=== PATIENT | male | born 1990 | race Caucasian/White ===

== ENCOUNTER 2021-02-05 12:21 | Outpatient (RCR) | payer BC, SELFPAY ==
[2019-10-31 10:06] VITALS: BMI 22.3
== END 2021-04-13 23:59 ==
LOC: IMMUN 12:21
PROVIDERS: Visit Provider Family Medicine
DX: Z23 Encounter for immunization (principal)
CPT/HCPCS: 0001A; 0002A; 91300

== ENCOUNTER 2023-08-10 03:11 | Emergency (ER) | payer BC, SELFPAY ==
[2023-08-10 03:13] VITALS: BP 115/69; PULSE 80; RESP 16; TEMP 38.3; O2SAT 96; BMI 23.6
--- NOTE | 2023-08-10 03:27 | EKG12_ITS ---
Test Reason : DYSRHYTHMIA Blood Pressure : / mmHG Vent. Rate : 084 BPM Atrial Rate : 084 BPM P-R Int : 152 ms QRS Dur : 132 ms QT Int : 388 ms P-R-T Axes : 068 086 024 degrees QTc Int : 458 ms Normal sinus rhythm Right bundle branch block Abnormal ECG Confirmed by SUZAN STEVENS, ARTURO ([id number]), development editor RUSTY MCCOY ([id number]) on 08/11/2023 1:07:17 PM Referred By: Confirmed By:ARTURO MARES MD
[2023-08-10] MEDS: 0.9% Normal Saline (1000mL) 1,000 ML 1000 ML IV (03:41)
[2023-08-10 03:57] LABS: Anion Gap 7 (5-15); BUN 9 mg/dL (7-18); BUN/Creat Ratio 8.6 RATIO (10-20); Calcium,Total 8.3 mg/dL (8.5-10.1); Chloride 104 mmol/L (98-107); Creatinine, Serum 1.05 mg/dL (0.70-1.30); EST Glomerular Filtration Rate 86 mL/min (>60); Est Glom Filt Rate - Afr Amer 104 mL/min (>60); Estimated Creatinine Clearance 106.58 ml/min; Glucose 116 mg/dL (74-106); Potassium 3.6 mmol/L (3.5-5.1); Sodium Level 136 mmol/L (136-145)
[2023-08-10] MEDS: Acetaminophen 500 MG Tablet 1000 MG PO (04:04)
--- NOTE | 2023-08-10 04:19 | EDS_ITS ---
HPI History of Present Illness Chief Complaint: Syncope Informant: patient and spouse/S.O. Narrative Narrative: Patient presents after a syncopal episode at home. Patient has been ill for 2 or 3 days. He has not been eating much. His drinking is okay but still decreased. He has been having fevers and myalgias. Generalized malaise. But no specific symptoms such as coughing or congestion abdominal pain nausea vomiting or diarrhea. His had the same symptoms for a few days but got better. Sounds like his child had same symptoms and brought this home from daycare. The patient was not sleeping well. He got up to get a drink of water. When he got up and walked across the room he started getting nauseated. He ended up passing out. He did not hurt himself. His states he never hit his head. Patient has taken COVID test at home which are negative. He has no history of cardiac disease. There are no other chronic conditions. He is on no medications No allergies. No recent surgeries. [facility] Medical History (Updated 08/10/23 @ 04:[address] Ramos Nolan MD) Diarrhea Home Medications NK 10/31/19 [History Last Taken Unknown] Allergy/AdvReac Type Severity Reaction Status Date / Time No Known Allergies Allergy Verified 08/10/23 03:13 Social History Smoking Status: Never smoker alcohol intake: current alcohol intake frequency: a few times a month [facility] ED Constitutional Constitutional ED: Reports chills, fever(s), subjective and sweats Eyes Eyes: Denies change in vision ENT ENT ED: Denies rhinorrhea or sore throat Cardiovascular Cardiovascular: Denies chest pain, palpitations or racing heartbeat Respiratory/Chest Respiratory/Chest: Denies cough or dyspnea on exertion Gastrointestinal Gastrointestinal: Reports nausea and other Details: Generally the patient has not been nauseated but he did get nauseated this evening. He is not nauseated now. ; Denies abdominal pain or vomiting Genitourinary Genitourinary ED: Denies dysuria Musculoskeletal Musculoskeletal: Reports myalgias Integumentary Denies rash Neurologic Neurologic: Denies headache(s), paresthesias or weakness Hematologic/Lymphatic Hematologic/Lymphatic: Denies easy bleeding or easy bruising Allergic/Immunologic Allergic/Immunologic ED: Denies urticaria EXAM Physical Exam Narrative Exam Narrative: General: Patient is awake alert nontoxic. He walked back from triage without difficulty. HEENT: He does have mildly dry mucous membranes. No sinus tenderness. Oropharynx is showing no exudate. No trauma. Neck is supple. No JVD. Lungs are clear bilaterally. He takes good easy breaths without pain. Saturations are normal at 96% on room air showing no hypoxia. Heart is actually regular. He is not tachycardic. Sounds very regular without any ectopy. No muffled tones. His peripheral pulses are normal x4. Abdomen soft completely nontender on exam. No distention. No spinal tenderness. Skin shows no rashes or pallor. He is not diaphoretic at this time. Const Vital Signs: 08/10/23 03:13 08/10/23 03:18 Temperature 101.0 F H Temperature Source Temporal Pulse Rate 80 Respiratory Rate 16 Respiratory Effort Short of Breath Respiratory Pattern Normal Blood Pressure 115/69 Blood Pressure Mean 84 Pulse Ox 96 Oxygen Delivery Method Room Air MDM MDM MDM Narrative Medical decision making narrative: It sounds like patient likely had vagal episode. This is likely syncope related to a combination of issues. His p.o. intake has been poor for a few days and has been having a fever so he has some clinical dehydration. He got up and quickly started walking which may cause some orthostatic symptoms. Nausea may have contributed to this and the combination caused him to have a syncopal episode. I will give him some fluids because clinically and he is mildly dehydrated. We will check basic blood work to make sure he does not show acute kidney injury hyponatremia diabetes or other issues. I do not think a CBC is needed. He is not at all anemic by exam. No pallor of conjunctive a or palms. No bleeding history. We will also do EKG. Electrolytes show no marked abnormalities. Mild elevation of glucose at 116 and that can be followed. Patient is feeling better. Heart rate is 70 on the monitor. He can drink fluids. We have gotten a medicine for the fever. I do not think he needs further imaging or work-up. He should resolve. This clinically is a viral syndrome and he should recover well. He was encouraged to drink fluids and eat some calories. Lab Data Attestation: I reviewed the patient's lab results. Labs: Laboratory Results - last 24 hr 08/10/23 03:35 Sodium 136 Potassium 3.6 Chloride 104 Carbon Dioxide 25.0 Anion Gap 7 BUN 9 Creatinine 1.05 Estim Creat Clear Calc 106.58 Est GFR (MDRD) Af Amer 104 Est GFR (MDRD) Non-Af 86 BUN/Creatinine Ratio 8.6 L Glucose 116 H Calcium 8.3 L EKG Initial EKG: Comments: My independent interpretation of the patient's EKG shows a normal sinus rhythm with a rate of 84. No ventricular ectopy. There is a right bundle branch block pattern with secondary changes but no indication of acute infarct or ischemia. MN interval, QTc are normal. QRS duration is slightly long at 132 ms likely related to the right bundle branch block. Discharge Plan Triage Chief Complaint: Syncope ED Provider: Ramos Nolan Dx/Rx/DC Orders Clinical Impression: Acute viral syndrome, Syncope, Dehydration, mild Instructions: ED Fainting, Uncertain Cause, ED Viral Syndrome (Adult) Prescriptions: No Action NK Primary Care Provider: Care Physician,No Primary Referrals: Laurel Garcia MD [Med Staff - Wellness Program Coordinator] - 1-2 Days if not improving Activity Restrictions/Additional Instructions: Follow-up with your physician or referral as above. Disposition Disposition: Home, Self Care
[2023-08-10 05:08] VITALS: BP 115/69; PULSE 67; RESP 20; TEMP 37.1
== END 2023-08-10 05:09 | disposition home or self-care (01) ==
PROVIDERS: Emergency Provider Emergency Medicine; Visit Provider Emergency Medicine
DX: E86.0 Dehydration (principal); R73.9 Hyperglycemia, unspecified; M79.10 Myalgia, unspecified site; R55 Syncope and collapse; B34.9 Viral infection, unspecified; R11.0 Nausea
CPT/HCPCS: 80048; 93005; 96360; 99284; J7030; A4216

== ENCOUNTER 2023-08-29 18:14 | Emergency (ER) | payer BC, SELFPAY ==
[2023-08-29 18:15] VITALS: BP 125/76; PULSE 73; RESP 18; TEMP 35.8; O2SAT 100; BMI 23.4
--- NOTE | 2023-08-29 18:43 | US_ITS ---
STUDY: SCROTUM ULTRASOUND REASON FOR EXAM: Male, 33 years old. R test pain/swelling TECHNIQUE: Ultrasound evaluation of the scrotum was performed with color Doppler and static moise-scale imaging. COMPARISON: None. FINDINGS: RIGHT TESTICLE INTRATESTICULAR: There is a normal size of the right testicle. The right testicle measures 5.1 x 3.3 x 2.8 cm. There is a heterogeneous echotexture. There is increased arterial and increased venous vascularity. There is no demonstrated right testicular mass or cyst. EXTRATESTICULAR: The epididymis is normal in size. The epididymis head measures 1.7 cm. There is normal vascularity of the epididymis. There is no demonstrated epididymal cystic structure. There is a moderate size hydrocele. There is no demonstrated varicocele. There is no demonstrated extratesticular mass or cyst. LEFT TESTICLE INTRATESTICULAR: There is a normal size of the left testicle. The left testicle measures 5.5 x 2.7 x 2.1 cm. There is a homogenous echotexture. There is normal arterial and normal venous vascularity. There is no demonstrated left testicular mass or cyst. EXTRATESTICULAR: The epididymis is normal in size. The epididymis head measures 1.3 cm. There is normal vascularity of the epididymis. There is 0.3 cm cyst. There is a small hydrocele. There are prominent extratesticular veins consistent with a varicocele. There is no demonstrated extratesticular mass or cyst. US/Testicular with Arterial Flow IMPRESSION: No intratesticular mass. Increased blood flow and heterogeneous echotexture on the right suggesting orchitis. Right greater than left hydroceles. Electronically Signed: Gold Dawson MD at 19:57 EDT ,
[2023-08-29 19:09] LABS: Bacteria 0 SEEN /hpf (None Seen); Mucous, Urine 0 SEEN /hpf (<or=2+); Red Blood Cells-Urine 0 SEEN /hpf (0-5); Squamous Epithelial Cells - UA 0 SEEN /hpf (0-5); White Blood Cells 0 SEEN /hpf (0-5)
[2023-08-29 19:13] LABS: Color, Urine Yellow (Yellow); Glucose, Dipstick Normal (Normal); Ketone-Dipstick Negative (Negative); Leukocyte Esterase-Dipstick Negative /ul (Negative); Nitrite-Dipstick Negative (Negative); Occult Blood-Urine Negative /ul (Negative); Protein-Dipstick 30 mg/dl (Negative); Specific Gravity, Urine 1.025 (1.002-1.030); Urine Bilirubin Dipstick Negative (Negative); Urine Clarity Clear (Clear); Urine Urobilinogen Normal (Normal)
--- NOTE | 2023-08-29 19:36 | EDS_ITS ---
HPI History of Present Illness Chief Complaint: Male Pain/Injury Informant: patient and spouse/S.O. Related History Sexually: Active and Single Partner STD: No Narrative Narrative: 33-year-old healthy male, monogamous without history of GC and chlamydia presenting with right testicular pain, swelling, redness for the last several days and then today started feeling feverish with myalgias and malaise. No other symptoms to suggest a different source. No urinary symptoms or dysuria. No injury. Process of pain and swelling in right testicle was gradual not sudden. Never had this before. No history of genitourinary surgery. [facility] Medical History (Updated 08/29/23 @ 21:[address] Gold Maxwell MD) Diarrhea Medical History no medical history no medical history Home Medications NK 10/31/19 [History Last Taken Unknown] doxycycline monohydrate 100 mg capsule 100 mg PO BID #20 CAPSULES 08/29/23 [Rx Last Taken Unknown] Allergy/AdvReac Type Severity Reaction Status Date / Time No Known Allergies Allergy Verified 08/29/23 18:17 Social History Smoking Status: Never smoker alcohol intake: current alcohol intake frequency: a few times a month ROS ROS ED Constitutional Constitutional ED: Reports body ache(s), chills, fever(s) and malaise Eyes Eyes: Denies change in vision ENT ENT ED: Denies ear pain, rhinorrhea or sore throat Cardiovascular Cardiovascular: Denies chest pain or palpitations Respiratory/Chest Respiratory/Chest: Denies cough or dyspnea Gastrointestinal Gastrointestinal: Denies abdominal pain, diarrhea, nausea or vomiting Genitourinary Genitourinary ED: Reports as per HPI, scrotal pain, scrotal swelling and testicular swelling; Denies dysuria, hematuria or urinary frequency Musculoskeletal Musculoskeletal: Denies arthralgias, back pain or neck pain Integumentary Denies abscess or rash Neurologic Neurologic: Denies headache(s), paresthesias or weakness EXAM Physical Exam Const Vital Signs: 08/29/23 18:15 08/29/23 20:58 Temperature 96.5 F L Temperature Source Temporal Pulse Rate 73 48 L Respiratory Rate 18 18 Blood Pressure 125/76 H 103/65 Blood Pressure Mean 92 77 Pulse Ox 100 95 Oxygen Delivery Method Room Air Room Air Positive well nourished and well developed General Appearance ED: well developed and NAD HEENT Reports moist mucous membranes normocephalic and atraumatic Eyes PERRL and EOMs intact bilaterally Neck full ROM and supple Resp normal respiratory effort and clear to auscultation bilaterally GI non-tender and non-distended Auscultation: normoactive bowel sounds Palpation: soft Narrative: Tender right testicle and epididymis, entire right hemiscrotum is swollen and erythematous, cremasterics are intact, there is no inguinal lymphadenopathy or evidence of a hernia. The left testicle is nontender, the hemiscrotum there is normal, and the penis is normal. No other rash or lesions. Testes: testicular swelling right Back/Spine General Back: other FROM Extremity normal to inspection General Extremety ED: Negative for edema, pulses abnormal or tenderness General Extremity: Negative for edema or pulses abnormal Neuro oriented x3, CN's II-XII intact bilaterally and no sensory deficits noted Sensorium / Orientation: awake and alert Motor Exam: strength 5/5 throughout Skin no rashes or lesions noted and no wounds MDM MDM MDM Narrative Medical decision making narrative: Low risk for GC and chlamydia, I sent that in order to rule out and that is pending. His regular urinalysis is normal. Ultrasound of the right hemiscrotum was obtained, I reviewed the images and the result which I agree with, basically consistent with acute right orchitis and small hydroceles without epididymitis or any other acute abnormality. Discussed with urology Dr. Galaviz, he recommends [id number] NSAIDs as well as doxycycline 100 mg twice daily for 10 days and close outpatient follow-up if does not improve/resolve. Patient is comfortable with that plan. Lab Data Attestation: I reviewed the patient's lab results. Labs: Laboratory Results - last 24 hr 08/29/23 19:01 Urine Color Yellow Urine Clarity Clear Urine pH 6.0 Ur Specific [place] 1.025 Urine Protein 30 H Urine Glucose (UA) Normal Urine Ketones Negative Urine Occult Blood Negative Urine Nitrite Negative Urine Bilirubin Negative Urine Urobilinogen Normal Ur Leukocyte Esterase Negative Urine RBC 0 SEEN Urine WBC 0 SEEN Ur Squamous Epith Cells 0 SEEN Urine Bacteria 0 SEEN Urine Mucus 0 SEEN Radiography Diagnostic Testing: Clinical Impression(s) from Imaging Studies Testicular Ultrasound 08/29/23 18:43 IMPRESSION: No intratesticular mass. Increased blood flow and heterogeneous echotexture on the right suggesting orchitis. Right greater than left hydroceles. Electronically Signed: Gold Dawson MD at 19:57 EDT , Management Discussion w/another healthcare provider: Cis Coordinator (urology dr. galaviz) Discharge Plan Triage Chief Complaint: Male Pain/Injury ED Provider: Gold Maxwell Dx/Rx/DC Orders Clinical Impression: Bilateral hydrocele, Orchitis, right Instructions: ED Hydrocele, Type Not Specified, ED Orchitis Prescriptions: New doxycycline monohydrate 100 mg capsule 100 mg PO BID Qty: 20 0RF No Action NK Primary Care Provider: Care Physician,No Primary Referrals: Gunnar Galaviz MD [Med Staff - Active Staff] - 1 Week if not improving Care Physician,No Primary [Primary Care Provider] - Activity Restrictions/Additional Instructions: Small hydroceles are usually nothing to worry about, just something to keep an eye on periodically especially if you have swelling or pain that develops be cause of them. I discussed with urology at any point in time, nothing related to your current orchitis/pain. Disposition Disposition: Home, Self Care
[2023-08-29 20:58] VITALS: BP 103/65; PULSE 48; RESP 18; O2SAT 95
[2023-08-29] MEDS: Doxycycline 100 MG CAPSULE PO (21:23)
[2023-08-29 21:29] VITALS: RESP 18
--- NOTE | 2023-08-29 21:30 | ED.RN ---
PT REFUSUED PO NAPROXEN. PT STATES HE WILL TAKE IBUPROFEN AT HOME AND HAS HAD ADEQUATE RELIEF FROM IBUPROFEN.
== END 2023-08-29 21:30 | disposition home or self-care (01) ==
PROVIDERS: Emergency Provider Emergency Medicine; Visit Provider Emergency Medicine
DX: N45.2 Orchitis (principal); N43.3 Hydrocele, unspecified
CPT/HCPCS: 76870; 81001; 87491; 87591; 93976; 99282

== ENCOUNTER → 2024-09-24 | Outpatient (CLI) | payer BC, SELFPAY | END | disposition home or self-care (01) | PROVIDERS: Referring Provider Obstetrics & Gynecology; Visit Provider Obstetrics & Gynecology | DX: Z31.440 Encounter of male for testing for genetic disease carrier status for procreative management (principal) | CPT/HCPCS: 36415 ==